=== PATIENT | male | born 1955 | race African-American/Black ===

== ENCOUNTER 2019-12-30 15:37 | Inpatient (IN) | payer OTHER ==
[2019-12-30 15:54] VITALS: TEMP 98; BMI 20.9
[2019-12-30 16:44] LABS: BASO % 1.3 % (0-2.0); HEMATOCRIT 44.3 % (35.4-49); HEMOGLOBIN 15.2 GM/dL (11.7-16.9); LYMPH % 21.5 % (8-40); MCH 34.3 pg (25.7-33.7); MCHC 34.3 g/dl (32.0-35.9); MEAN CELL VOLUME 100.2 fl (80-96); MEAN PLT VOLUME 8.6 fl (7.5-11.1); MONO % 8.2 % (3.8-10.2); PLATELET COUNT 293 K/MM3 (134-434); RBC 4.42 M/mm3 (4.00-5.60); RDW 13.8 % (11.9-15.9); WHITE BLOOD COUNT 7.2 K/mm3 (4.0-10.0)
[2019-12-30] MEDS ORDERED: niCARdipine HCL 25 MG/10 ML AMPUL IVPB ONE (16:52)
[2019-12-30] MEDS ORDERED: levETIRAcetam 500 MG/5 ML INJECTION VIAL IVPB ONE ×3 (16:53→17:15)
[2019-12-30] MEDS ORDERED: NICARDIPINE 25 MG in DEXTROSE 5%-WATER - 240 ML IVPB SCH (17:00)
--- NOTE | 2019-12-30 17:01 | PDOC ---
History of Present Illness - General Chief Complaint: Syncope/Near Syncope Stated Complaint: Injury Time Seen by Provider: 12/30/19 16:16 - History of Present Illness Initial Comments: 64 YOM no known medical history BIBA after unwitnessed fall. Patient is uncertain what happened has no memory of event. He complains only of head pain. Denies nausea, vomiting, fever, chills, chest pain, shortness of breath 12/30/19 17:02 Past History - Medical History Allergies/Adverse Reactions: Allergies Allergy/AdvReac Type Severity Reaction Status Date / Time No Known Allergies Allergy Verified 12/30/19 15:49 COPD: No Other medical history: denies hx - Psycho-Social/Smoking History Smoking History: Current every day smoker Have you smoked in the past 12 months: Yes Number of Cigarettes Smoked Daily: 10 Information on smoking cessation initiated: No - Substance Abuse Hx (Audit-C & DAST Scrn) How often the patient has a drink containing alcohol: 4 0r more times/wk Number of drinks the patient has on a typical day: 1 or 2 How often the patient has six or more drinks on one occasion: Daily or almost daily Score: In Men: 4 or > Positive; In Women: 3 or > Positive: 8 Screen Result (Pos requires Nsg. Audit-10AR): Positive In the last yr the pt used illegal drug/Rx for NonMed reason: No Score: Yes response is considered Positive: 0 Screen Result (Positive result requires Nsg. DAST-10): Negative Review of Systems - Review of Systems Constitutional: Yes: See HPI HEENTM: Yes: See HPI Respiratory: Yes: See HPI Cardiac (ROS): Yes: See HPI ABD/GI: Yes: See HPI : Yes: See HPI Musculoskeletal: Yes: See HPI Integumentary: Yes: See HPI Neurological: Yes: See HPI Endocrine: Yes: See HPI Hematologic/Lymphatic: Yes: See HPI *Physical Exam - Vital Signs Last Vital Signs Temp Pulse Resp BP Pulse Ox 98 F 75 18 149/95 99 12/30/19 15:50 12/30/19 15:50 12/30/19 15:50 12/30/19 15:50 12/30/19 15:50 - Physical Exam General Appearance: Yes: Nourished, Appropriately Dressed HEENT: positive: EOMI, DAVID, Normal ENT Inspection, Normal Voice, Other (3 CM laceration over occipital aspect of head w/ surrounding blood, patient has blood draining from left ear) Neck: positive: Trachea midline, Normal Thyroid Respiratory/Chest: positive: Lungs Clear, Normal Breath Sounds Cardiovascular: positive: Regular Rhythm, Regular Rate, S1, S2 ED Treatment Course - LABORATORY CBC & Chemistry Diagram: 12/30/19 16:17 12/30/19 16:17 Medical Decision Making - Medical Decision Making 64 YOM unknown history presents after unwitnessed fall, hit head and loc. - vitals wwnl on arrival - draining blood from ear, laceration on posterior head, neuro exam unremarkable - CT head and neck, labs reassess: - CT head reveals left occipital skull non displaced fracture, inferior right frontal hematoma without midline shift. - Alcohol 13.3, labs otherwise wnl - Patient placed on nicardipine drip, initial BP in 150s - Patient will be transferred to [facility] to Dr. Annamaria Chawla Discharge - Discharge Information Problems reviewed: Yes Clinical Impression/Diagnosis: Intracranial hemorrhage Condition: Critical Disposition: TRANSFER ACUTE CARE/OTHER HOSP - Admission No - Follow up/Referral - Patient Discharge Instructions - Post Discharge Activity - Transfer to Acute Care Facility Receiving Facility Name: [facility] Accepting Physician:: Dr. Annamaria Chawla
[2019-12-30 17:13] LABS: INR 0.92 (0.83-1.09); PROTHROMBIN TIME (PATIENT) 10.8 SEC (9.7-13.0)
[2019-12-30 17:16] LABS: ACTIVATED PTT 25.9 SECONDS (25.2-36.5)
[2019-12-30 17:17] LABS: ALBUMIN 3.9 g/dl (3.4-5.0); BILIRUBIN,TOTAL 0.5 mg/dL (0.2-1); BLOOD UREA NITROGEN 9.5 mg/dL (7-18); CREATININE 1.1 mg/dL (0.55-1.3); POTASSIUM 4.3 mmol/L (3.5-5.1); TOT PROT 7.6 g/dl (6.4-8.2)
[2019-12-30 17:20] LABS: MAGNESIUM 2.1 mg/dL (1.8-2.4)
[2019-12-30] MEDS ORDERED: LORazepam 2 MG/ML SDV VIAL IVPUSH PRN (18:35)
--- NOTE | 2019-12-30 18:41 | CONSULT ---
Consultation: REQUESTING PROVIDER: CONSULT REQUEST: We have been asked to medically evaluate this patient for (specify). HISTORY OF PRESENT ILLNESS: REVIEW OF SYSTEMS: CONSTITUTIONAL: Absent: fever, chills, diaphoresis, generalized weakness, malaise, loss of appetite, weight change HEENT: Absent: rhinorrhea, nasal congestion, throat pain, throat swelling, difficulty swallowing, mouth swelling, ear pain, eye pain, visual changes CARDIOVASCULAR: Absent: chest pain, syncope, palpitations, irregular heart rate, lightheadedness, peripheral edema RESPIRATORY: Absent: cough, shortness of breath, dyspnea with exertion, orthopnea, wheezing, stridor, hemoptysis GASTROINTESTINAL: Absent: abdominal pain, abdominal distension, nausea, vomiting, diarrhea, constipation, melena, hematochezia GENITOURINARY: Absent: dysuria, frequency, urgency, hesitancy, hematuria, flank pain, genital pain MUSCULOSKELETAL: Absent: myalgia, arthralgia, joint swelling, back pain, neck pain SKIN: Absent: rash, itching, pallor HEMATOLOGIC/IMMUNOLOGIC: Absent: easy bleeding, easy bruising, lymphadenopathy, frequent infections ENDOCRINE: Absent: unexplained weight gain, unexplained weight loss, heat intolerance, cold intolerance NEUROLOGIC: Absent: headache, focal weakness or paresthesias, dizziness, unsteady gait, seizure, mental status changes, bladder or bowel incontinence PSYCHIATRIC: Absent: anxiety, depression, suicidal or homicidal ideation, hallucinations. PHYSICAL EXAMINATION Vital Signs - 24 hr 12/30/19 12/30/19 15:50 17:16 Temperature 98 F Pulse Rate 75 72 Respiratory 18 Rate Blood Pressure 149/95 153/82 O2 Sat by Pulse 97 Oximetry (%) GENERAL: Awake, alert, and fully oriented, in no acute distress. HEAD: Normal with no signs of trauma. EYES: Pupils equal, round and reactive to light, extraocular movements intact, sclera anicteric, conjunctiva clear. No lid lag. EARS, NOSE, THROAT: Ears normal, nares patent, oropharynx clear without exudates. Moist mucous membranes. NECK: Normal range of motion, supple without lymphadenopathy, JVD, or masses. LUNGS: Breath sounds equal, clear to auscultation bilaterally. No wheezes, and no crackles. No accessory muscle use. HEART: Regular rate and rhythm, normal S1 and S2 without murmur, rub or gallop. ABDOMEN: Soft, nontender, not distended, normoactive bowel sounds, no guarding, no rebound, no masses. No hepatomegaly or splenomegaly. MUSCULOSKELETAL: Normal range of motion at all joints. No bony deformities or tenderness. No CVA tenderness. UPPER EXTREMITIES: 2+ pulses, warm, well-perfused. No cyanosis. No clubbing. Cap refill <2 seconds. No peripheral edema. LOWER EXTREMITIES: 2+ pulses, warm, well-perfused. No calf tenderness. No peripheral edema. NEUROLOGICAL: Cranial nerves II-XII intact. Normal speech. Normal gait. PSYCHIATRIC: Cooperative. Good eye contact. Appropriate mood and affect. SKIN: Warm, dry, normal turgor, no rashes or lesions noted. Laboratory Results - last 24 hr 12/30/19 12/30/19 12/30/19 16:17 16:17 16:17 WBC 7.2 RBC 4.42 Hgb 15.2 Hct 44.3 MCV 100.2 H MCH 34.3 H MCHC 34.3 RDW 13.8 Plt Count 293 MPV 8.6 Absolute Neuts (auto) 4.9 Neutrophils % 68.0 Lymphocytes % 21.5 Monocytes % 8.2 Eosinophils % 1.0 Basophils % 1.3 Nucleated RBC % 0 PT with INR 10.80 INR 0.92 PTT (Actin FS) 25.9 Sodium Potassium Chloride Carbon Dioxide Anion Gap BUN Creatinine Est GFR (CKD-EPI)AfAm Est GFR (CKD-EPI)NonAf Random Glucose Calcium Magnesium 2.1 Total Bilirubin AST ALT Alkaline Phosphatase Troponin I < 0.02 Total Protein Albumin Triglycerides Cholesterol Total LDL Cholesterol HDL Cholesterol Alcohol, Quantitative 13.3 H Blood Type 12/30/19 12/30/19 16:17 16:17 WBC RBC Hgb Hct MCV MCH MCHC RDW Plt Count MPV Absolute Neuts (auto) Neutrophils % Lymphocytes % Monocytes % Eosinophils % Basophils % Nucleated RBC % PT with INR INR PTT (Actin FS) Sodium 138 Potassium 4.3 Chloride 103 Carbon Dioxide 28 Anion Gap 8 BUN 9.5 Creatinine 1.1 Est GFR (CKD-EPI)AfAm 81.79 Est GFR (CKD-EPI)NonAf 70.57 Random Glucose 103 Calcium 9.0 Magnesium Total Bilirubin 0.5 AST 34 ALT 25 Alkaline Phosphatase 81 Troponin I Total Protein 7.6 Albumin 3.9 Triglycerides 78 Cholesterol 196 Total LDL Cholesterol 60 HDL Cholesterol 130 H Alcohol, Quantitative Blood Type O POSITIVE Active Medications Generic Name Dose Route Start Last Admin Trade Name Freq PRN Reason Stop Dose Admin Chlorhexidine Gluconate 1 applic 12/30/19 22:00 Hibiclens For Decolonization - TP HS HANANE Nicardipine HCl 25 mg/ 250 mls @ 20 mls/hr 12/30/19 17:00 12/30/19 17:16 Dextrose IVPB 2.5 mg/hr TITR HANANE 25 mls/hr Administration Protocol 2 MG/HR Lorazepam 2 mg 12/30/19 18:35 Ativan Injection - IVPUSH PRN PRN WITHDRAWAL(CONT SUBST) Mupirocin 1 applic 12/30/19 22:00 Bactroban Ointment (For Decolonization) - NS 01/04/20 21:59 BID HANANE Pantoprazole Sodium 40 mg 12/31/19 10:00 Protonix Iv IVPUSH DAILY HANANE ASSESSMENT/PLAN: Dispo: We will continue to follow the patient. Thank you for this consultative opportunity. ATTENDING PHYSICIAN STATEMENT I saw and evaluated the patient. I reviewed the resident's note and discussed the case with the resident. I agree with the resident's findings and plan as documented. SUBJECTIVE: OBJECTIVE: ASSESSMENT AND PLAN:
[2019-12-30 18:44] VITALS: BP 135/75; PULSE 82
[2019-12-30] MEDS ORDERED: DIPHTH,PERTUSS(ACELL),TET 0.5 ML DISP.SYRIN IM ONE ×3 (19:12→21:12)
--- NOTE | 2019-12-30 19:17 | PDOC ---
Attending Attestation - Resident Resident Name: Neo Murillo - ED Attending Attestation I have performed the following: I have examined & evaluated the patient, The case was reviewed & discussed with the resident, I agree w/resident's findings & plan, Exceptions are as noted - HPI HPI: 12/30/19 19:18 64 years old high cholesterol brought in by ambulance after unwitnessed fall hematoma to occiput alert and oriented in ED complaining of headache sent to CAT scan for stat head CT. - Physicial Exam PE: 12/30/19 19:18 Vitals: Triage Vital signs reviewed General Appearance: No acute distress, well nourished well developed, Head: Hematoma and laceration 2 cm to occiput Eyes: Pupils equal reactive round, extraocular movement intact Ears: Blood in Left ear canal obscuring L TM Nose: Nares patent bilaterally; no nasal congestion Throat: Posterior oropharynx without erythema, mucous membranes moist, Neck: Supple; no Nucal rigidity Chest Wall: Nontender Cardiac: Regular rate and rhythym, no murmurs, no rubs, no gallops, Lungs: Clear to auscultation bilateral, good air movement bilaterally, Abdomen: Soft, non distended, normal bowel sounds, non tender to palpation Extremities: Full range of motion to all extremities, no cyanosis, clubbing, or edema Skin: Warm and dry, no rashes or lesions, no rash, no petechiae Neuro: AOX2; cranial Nerves 2-12 grossly intact, strength intact to all extrem ities, sensation intact to all extremities, - Critical Care Time Total Critical Care Time: 65 Critical Care Statement: The care of this patient involved high complexity decision making to prevent further life threatening deterioration of the patient's condition and/or to evaluate & treat vital organ system(s) failure or risk of failure. - Medical Decision Making 12/30/19 19:[address] with intraparenchymal bleed likely traumatic Case discussed with neurosurgery recommends CTA no acute fracture dislocation on C-spine Nonfocal neurologic examination patient complaining of headache slightly tired but awake protecting airway Loaded with Keppra given IV nicardipine for BP control Final head CT results with temporal bone fracture neurosurgery recommends urgent ENT consultation given possibility of impacted temporal bone No ENT medical records receptionist Patient require transfer to trauma center for further management Discharge - Discharge Information Problems reviewed: Yes Clinical Impression/Diagnosis: Intracranial hemorrhage Condition: Critical Disposition: TRANSFER ACUTE CARE/OTHER HOSP - Follow up/Referral - Patient Discharge Instructions - Post Discharge Activity
--- OUTSIDE RECORDS SUMMARY | 2019-12-30 19:43 | XMS ---
:1955 [facility] Providers Name Role Phone [facility] [id number] Unavailable Unavailable Re-disclosure Warning The records that you are about to access may contain information from federally- assisted alcohol or drug abuse programs. If such information is present, then the following federally mandated warning applies: This information has been disclosed to you from records protected by federal confidentiality rules (42 CFR part 2). The federal rules prohibit you from making any further disclosure of this information unless further disclosure is expressly permitted by the written consent of the person to whom it pertains or as otherwise permitted by 42 CFR part 2. A general authorization for the release of medical or other information is NOT sufficient for this purpose. The Federal rules restrict any use of the information to criminally investigate or prosecute any alcohol or drug abuse patient.The records that you are about to access may contain highly sensitive health information, the redisclosure of which is protected by Article 27-F of the [facility] Public Health law. If you continue you may haveaccess to information: Regarding HIV / AIDS; Provided by facilities licensed or operated by the [facility] Office of Mental Health; or Provided by the [facility] Office for People With Developmental Disabilities. If such information is present, then the following [facility] mandated warning applies: This information has been disclosed to you from confidential records which are protected by state law. State law prohibits you from making any further disclosure of this information without the specific written consent of the person to whom it pertains, or as otherwise permitted by law. Any unauthorized further disclosure in violation of state law may result in a fine or shelter sentence or both. A general authorization for the release of medical or other information is NOT sufficient authorization for further disclosure. Encounters Encounter Providers Location Date Indications Data Source(s ) Outpatient Attender: [id number] 06/06/2019 [facility] 08:51:56 AM Care Sangita cheney) EST Patient admitted. Insurance Providers Payer name Policy type Policy ID Covered Covered constitution party's Policy P serge / Coverage constitution party ID relationship to [employer] ormation type cam[place] [id number] [place] [id number] O
[2019-12-30] MEDS ORDERED: LORazepam 2 MG/ML SDV VIAL ONE (20:32)
[2019-12-30] MEDS ORDERED: RAPID SEQUENCE INTUBATION KIT NR ONE (20:39)
[2019-12-30] MEDS ORDERED: MIDAZOLAM HCL 2 MG/2 ML SINGLE DOSE VIAL ONE ×2 (20:40→20:55)
[2019-12-30] MEDS ORDERED: ROCURONIUM BROMIDE 100 MG/10 ML VIAL ONE (20:43)
[2019-12-30] MEDS ORDERED: MIDAZOLAM HCL 5 MG/1 ML Single Dose Vial IVPUSH ONE (20:59)
[2019-12-30] MEDS ORDERED: MIDAZOLAM 100 MG in SODIUM CHLORIDE 100 ML IVPB SCH (21:00)
[2019-12-30] MEDS ORDERED: ROCURONIUM BROMIDE 50 MG/5 ML VIAL IV ONE ×2 (21:00→21:01)
[2019-12-30] MEDS ORDERED: MIDAZOLAM HCL 2 MG/2 ML SINGLE DOSE VIAL IVPUSH ONE (21:00)
[2019-12-30] MEDS ORDERED: MIDAZOLAM IN 0.9 % SOD.CHLORID 1 MG/1 ML PLAST..BAG ONE (21:02)
--- NOTE | 2019-12-30 21:03 | PDOC ---
*Physical Exam - Vital Signs Last Vital Signs Temp Pulse Resp BP Pulse Ox 98 F 82 18 135/75 97 12/30/19 15:50 12/30/19 17:50 12/30/19 15:50 12/30/19 17:50 12/30/19 15:50 ED Treatment Course - LABORATORY CBC & Chemistry Diagram: 12/30/19 16:17 12/30/19 16:17 - ADDITIONAL ORDERS Additional order review: Laboratory Results 12/30/19 12/30/19 12/30/19 16:17 16:17 16:17 PT with INR INR PTT (Actin FS) Sodium 138 Potassium 4.3 Chloride 103 Carbon Dioxide 28 Anion Gap 8 BUN 9.5 Creatinine 1.1 Est GFR (CKD-EPI)AfAm 81.79 Est GFR (CKD-EPI)NonAf 70.57 Random Glucose 103 Calcium 9.0 Magnesium 2.1 Total Bilirubin 0.5 AST 34 ALT 25 Alkaline Phosphatase 81 Troponin I < 0.02 Total Protein 7.6 Albumin 3.9 Triglycerides 78 Cholesterol 196 Total LDL Cholesterol 60 HDL Cholesterol 130 H Alcohol, Quantitative 13.3 H Blood Type O POSITIVE Antibody Screen Negative 12/30/19 16:17 PT with INR 10.80 INR 0.92 PTT (Actin FS) 25.9 Sodium Potassium Chloride Carbon Dioxide Anion Gap BUN Creatinine Est GFR (CKD-EPI)AfAm Est GFR (CKD-EPI)NonAf Random Glucose Calcium Magnesium Total Bilirubin AST ALT Alkaline Phosphatase Troponin I Total Protein Albumin Triglycerides Cholesterol Total LDL Cholesterol HDL Cholesterol Alcohol, Quantitative Blood Type Antibody Screen 12/30/19 16:17 RBC 4.42 MCV 100.2 H MCHC 34.3 RDW 13.8 MPV 8.6 Neutrophils % 68.0 Lymphocytes % 21.5 Monocytes % 8.2 Eosinophils % 1.0 Basophils % 1.3 - Medications Given in the ED: ED Medications Discontinued Medications Generic Name Dose Route Start Last Admin Trade Name Freq PRN Reason Stop Dose Admin Levetiracetam 1,000 mg 12/30/19 16:53 12/30/19 17:17 Keppra Injection - IVPB 12/30/19 16:54 Not Given ONCE ONE Levetiracetam 1,000 mg 12/30/19 17:15 12/30/19 17:16 Keppra Injection - IVPB 12/30/19 17:16 1,000 mg ONCE ONE Administration Medical Decision Making - Critical Care Time Total Critical Care Time (minutes): 100 Critical Care Statement: The care of this patient involved high complexity decision making to prevent further life threatening deterioration of the patient's condition and/or to evaluate & treat vital organ system(s) failure or risk of failure. - Medical Decision Making 12/30/19 21:00 Patient signed out pending transfer to [facility] secondary to skull fracture and intracranial bleed status post fall Patient became increasingly agitated and combative, unresponsive to verbal commands to altered behavior and increasingly confused Due to head injury and need for sedation to ensure care plan patient intubated for airway protection, end-tidal CO2, direct visualization and post intubation chest x-ray to confirm placement We will transfer via critical care team Discharge - Discharge Information Problems reviewed: Yes Clinical Impression/Diagnosis: Intracranial hemorrhage Condition: Critical Disposition: TRANSFER ACUTE CARE/OTHER HOSP - Follow up/Referral - Patient Discharge Instructions - Post Discharge Activity
--- NOTE | 2019-12-30 21:17 | PDOC ---
*Physical Exam - Vital Signs Last Vital Signs Temp Pulse Resp BP Pulse Ox 98 F 82 15 135/75 100 12/30/19 15:50 12/30/19 17:50 12/30/19 20:55 12/30/19 17:50 12/30/19 20:55 ED Treatment Course - LABORATORY CBC & Chemistry Diagram: 12/30/19 16:17 12/30/19 16:17 - ADDITIONAL ORDERS Additional order review: Laboratory Results 12/30/19 12/30/19 12/30/19 16:17 16:17 16:17 PT with INR INR PTT (Actin FS) Sodium 138 Potassium 4.3 Chloride 103 Carbon Dioxide 28 Anion Gap 8 BUN 9.5 Creatinine 1.1 Est GFR (CKD-EPI)AfAm 81.79 Est GFR (CKD-EPI)NonAf 70.57 Random Glucose 103 Calcium 9.0 Magnesium 2.1 Total Bilirubin 0.5 AST 34 ALT 25 Alkaline Phosphatase 81 Troponin I < 0.02 Total Protein 7.6 Albumin 3.9 Triglycerides 78 Cholesterol 196 Total LDL Cholesterol 60 HDL Cholesterol 130 H Alcohol, Quantitative 13.3 H Blood Type O POSITIVE Antibody Screen Negative 12/30/19 16:17 PT with INR 10.80 INR 0.92 PTT (Actin FS) 25.9 Sodium Potassium Chloride Carbon Dioxide Anion Gap BUN Creatinine Est GFR (CKD-EPI)AfAm Est GFR (CKD-EPI)NonAf Random Glucose Calcium Magnesium Total Bilirubin AST ALT Alkaline Phosphatase Troponin I Total Protein Albumin Triglycerides Cholesterol Total LDL Cholesterol HDL Cholesterol Alcohol, Quantitative Blood Type Antibody Screen 12/30/19 16:17 RBC 4.42 MCV 100.2 H MCHC 34.3 RDW 13.8 MPV 8.6 Neutrophils % 68.0 Lymphocytes % 21.5 Monocytes % 8.2 Eosinophils % 1.0 Basophils % 1.3 - Medications Given in the ED: ED Medications Discontinued Medications Generic Name Dose Route Start Last Admin Trade Name Freq PRN Reason Stop Dose Admin Levetiracetam 1,000 mg 12/30/19 16:53 12/30/19 17:17 Keppra Injection - IVPB 12/30/19 16:54 Not Given ONCE ONE Levetiracetam 1,000 mg 12/30/19 17:15 12/30/19 17:16 Keppra Injection - IVPB 12/30/19 17:16 1,000 mg ONCE ONE Administration Lorazepam 1 mg 12/30/19 20:31 12/30/19 21:00 Ativan Injection - IVPUSH 12/30/19 20:32 1 mg ONCE ONE Administration Midazolam HCl 4 mg 12/30/19 20:59 12/30/19 21:05 Versed - IVPUSH 12/30/19 21:00 4 mg ONCE ONE Administration Midazolam HCl 4 mg 12/30/19 21:00 12/30/19 21:05 Versed - IVPUSH 12/30/19 21:01 4 mg ONCE ONE Administration Rocuronium [place] 50 mg 12/30/19 21:01 12/30/19 21:04 Zemuron - IV 12/30/19 21:02 50 mg ONCE ONE Administration Medical Decision Making - Medical Decision Making Patient signed out by Dr. Murillo Pending transfer to [facility] Initially calm, however, became increasingly agitated and raising his voice Administered ativan with minimal improvement Decision made to intubate patient; please see Dr. Lutz's progress note Updated Dr. Chawla at [facility] regarding patient's intubation Updated trauma attending at [facility] as well 12/30/19 21:18 Patient rolling out via EMS 12/30/19 21:38 Discharge - Discharge Information Problems reviewed: Yes Clinical Impression/Diagnosis: Intracranial hemorrhage Condition: Critical Disposition: TRANSFER ACUTE CARE/OTHER HOSP - Follow up/Referral - Patient Discharge Instructions - Post Discharge Activity
[2019-12-30] MEDS ORDERED: MUPIROCIN 2% TOPICAL OINTMENT FOR DECOLONIZATION NS SCH (22:00)
[2019-12-30] MEDS ORDERED: CHLORHEXIDINE GLUCONATE 4% CLEANSER FOR DECOLONIZATION TP SCH (22:00)
--- NOTE | 2019-12-31 09:06 | EKG ---
Test Reason : Blood Pressure : / mmHG Vent. Rate : 066 BPM Atrial Rate : 066 BPM P-R Int : 146 ms QRS Dur : 088 ms QT Int : 410 ms P-R-T Axes : 062 049 074 degrees QTc Int : 429 ms NORMAL SINUS RHYTHM MODERATE VOLTAGE CRITERIA FOR LVH, MAY BE NORMAL VARIANT BORDERLINE ECG NO PREVIOUS ECGS AVAILABLE Confirmed by MD MARIUSZ, VISHAL ([id number]) on 12/31/2019 9:05:43 AM Referred By: Confirmed By:VISHAL VEE MD
[2019-12-31] MEDS ORDERED: PANTOPRAZOLE SODIUM 40 MG VIAL IVPUSH SCH (10:00)
== END 2019-12-30 21:40 | disposition short-term general hospital (02) | DRG 55 ==
LOC: JER 15:37 → JERBED 18:12
PROVIDERS: ADMIT Internal Medicine; ATTEND Internal Medicine
PROC: 0BH17EZ Insertion of Endotracheal Airway into Trachea, Via Natural or Artificial Opening (ICD-10-PCS; principal; 2019-12-30)
PROC: 5A1935Z Respiratory Ventilation, Less than 24 Consecutive Hours (ICD-10-PCS; 2019-12-30)
DX: S06.349A Traumatic hemorrhage of right cerebrum with loss of consciousness of unspecified duration, initial encounter (principal); S02.11HA Other fracture of occiput, left side, initial encounter for closed fracture; F17.210 Nicotine dependence, cigarettes, uncomplicated; S01.81XA Laceration without foreign body of other part of head, initial encounter; E78.5 Hyperlipidemia, unspecified; S02.19XA Other fracture of base of skull, initial encounter for closed fracture; R45.1 Restlessness and agitation; W18.39XA Other fall on same level, initial encounter; Y92.89 Other specified places as the place of occurrence of the external cause
CPT/HCPCS: 36415; 70450-TC; 70496-TC; 71045-TC-FY; 72125-TC; 80053; 80061; 80307; 83721; 83735; 84484; 85025; 85610; 85730; 86850; 86900; 86901; 90715; 93005; 93010; 94002; 99291; Q9967